=== PATIENT | female | born 1990 | race Two or more races ===

== ENCOUNTER 2024-10-03 05:18 | Day surgery (SDC) | payer BC ==
[2024-09-29 13:53] VITALS: BMI 27.1
[2024-10-03 08:16] LABS: INR 1.04 (0.83-1.09); PROTHROMBIN TIME (PATIENT) 11.7 SEC (9.7-13.0)
[2024-10-03] MEDS ORDERED: KETOROLAC TROMETHAMINE 30 MG/1 ML VIAL ONE (09:03)
[2024-10-03] MEDS ORDERED: DEXAMETHASONE SOD PHOSPHATE 4 MG/1 ML VIAL ONE (09:03)
[2024-10-03] MEDS ORDERED: ONDANSETRON 4 MG/2 ML VIAL ONE ×2 (09:03→10:10)
[2024-10-03] MEDS ORDERED: MIDAZOLAM HCL 2 MG/2 ML SINGLE DOSE VIAL ONE (09:03)
[2024-10-03] MEDS ORDERED: LIDOCAINE HCL/PF 2% SDV 5ML VIAL ONE (09:03)
[2024-10-03] MEDS ORDERED: PROPOFOL 20 ML ONE (09:03)
[2024-10-03] MEDS ORDERED: SEVOFLURANE 250 ML BTL ONE (09:05)
[2024-10-03] MEDS ORDERED: ACETAMINOPHEN 1000 MG/100 ML BAG IVPB PRN (09:10)
[2024-10-03] MEDS ORDERED: oxyCODONE HCL 5 MG TABLET PO PRN ×2 (09:10→09:16)
[2024-10-03] MEDS ORDERED: IBUPROFEN 600 MG TABLET (FP) PO PRN (09:16)
[2024-10-03] MEDS ORDERED: IBUPROFEN 800 MG/8 ML IJ IVPB PRN (09:16)
[2024-10-03] MEDS ORDERED: ONDANSETRON 4 MG/2 ML VIAL IVPUSH PRN (09:16)
[2024-10-03] MEDS ORDERED: ELECTROLYTE-148 SOLN 1,000 ML IV SCH (09:30)
[2024-10-03] MEDS: LACTATED RINGERS SOLUTION 1,000 ML IV SCH (10:00)
[2024-10-03] MEDS: ONDANSETRON 4 MG/2 ML VIAL IVPUSH PRN (10:14)
[2024-10-03 12:44] VITALS: BP 114/76; PULSE 81; RESP 17; TEMP 98
== END 2024-10-03 12:37 | disposition home or self-care (01) ==
LOC: JASU-SURG 05:18
PROVIDERS: ATTEND Obstetrics & Gynecology
PROC: 0UDB8ZZ Extraction of Endometrium, Via Natural or Artificial Opening Endoscopic (ICD-10-PCS; 2024-10-03)
PROC: 0UB98ZZ Excision of Uterus, Via Natural or Artificial Opening Endoscopic (ICD-10-PCS; principal; 2024-10-03 08:30)
DX: N84.0 Polyp of corpus uteri (principal); N93.9 Abnormal uterine and vaginal bleeding, unspecified
CPT/HCPCS: 36415; 81025; 85610; 86850; 86900; 86901; 88305-TC; 94760